=== PATIENT | female | born 1960 | race Caucasian/White ===

== ENCOUNTER 2016-09-13 18:35 | Emergency (ER) | payer OTHER ==
[2016-09-13 16:18] LABS: BASOPHILS 0.2 %; BASOPHILS ABSOLUTE 0.03 10/3/uL (0.0-0.16); EOSINOPHILS 0.8 %; EOSINOPHILS ABSOLUTE 0.13 10/3/uL (0.0-0.53); HEMATOCRIT 35.8 % (36.0-48.0); HEMOGLOBIN 11.6 g/dL (12.0-16.0); IMMATURE GRANULOCYTES 0.3 %; IMMATURE GRANULOCYTES ABSOLUTE 0.05 10/3/uL (0.0-0.11); LYMPHOCYTES 12.7 %; LYMPHOCYTES ABSOLUTE 1.97 10/3/uL (0.67-4.30); MEAN CORPUS HGB CONC 32.4 g/dL (32.0-36.0); MEAN CORPUSCULAR VOLUME 98.6 fL (80-100); MONOCYTES ABSOLUTE 0.47 10/3/uL (0.21-1.20); NEUTROPHILS ABSOLUTE 12.91 10/3/uL (2.02-8.40); PLATELET COUNT 311 10/3/uL (150-400); RBC DISTRIBUTION WIDTH 14.6 % (12.0-16.0); RED CELL COUNT 3.63 10/6/uL (4.0-5.6); WHITE BLOOD CELLS 15.6 10/3/uL (4.5-10.5)
[2016-09-13 16:20] LABS: MANUAL DIFF NO %
[2016-09-13 16:27] LABS: INTERNATIONAL NORMAL RATI 1.1 UNITS (-); PARTIAL THROMBO TIME 29.2 SEC (22.5-37.2); PROTIME (NOT ORD) 14.5 SEC (12.0-14.5)
[2016-09-13 16:32] LABS: CALCIUM, SERUM 8.9 MG/DL (8.5-10.4); CHEST PAIN PROFILE TAT 0 Hrs 18 Mins; CHLORIDE, SERUM 105 MMOL/L (96-112); CO2 (CARBON DIOXIDE) 30 MMOL/L (24-34); CREATININE 0.93 MG/DL (0.55-1.02); GFR AFRICAN AMERICAN 79 ML/MIN (>=60); GFR NON AFRICAN AMERICAN 68 ML/MIN (>=60); POTASSIUM, SERUM 4.2 MMOL/L (3.5-5.3); SODIUM, SERUM 139 MMOL/L (135-148); TROPONIN I <0.02 NG/ML (<0.05)
[2016-09-13 16:33] LABS: BUN (BLOOD UREA NITROGEN) 15 MG/DL (6-23); GLUCOSE, SERUM 144 MG/DL (60-99)
[~2016-09-13 18:35] MED LIST: ADVAIR100 INH; ADVAIR250 INH; AMB10 PO; ASAB PO; ATEN25 PO; CATAFLAM50 MG PO; CYMBALTA30 PO; FLONASE NAS; FORTAMET500 MG PO; GLUCPH PO; HALF81 PO; HCTZ25B PO; HYDROCHLOROT25 MG PO; KLOR-CON 1010 MEQ PO; LEVOTHYROXIN50 MCG PO; LEVOTHYROXIN75 MCG PO; LISINOPRIL40 MG PO; LORTAB10 PO; MEDROLPAK4 PO; MONODOX100 MG PO; NEUR600 PO; NORCO1 TAB PO; P10 PO; PROAIR HFA INH; PROVHFA INH; SINGULAIR1 PO; SPIRIVA INH; SYMBICORT 160/41 INH INH; SYN075 PO; TOPAMAX25 PO; VIMPAT200 MG PO; Z-PAK PO
== END 2016-09-13 19:38 | disposition home or self-care (01) ==
LOC: ER 18:35
PROVIDERS: Emergency Medicine
DX: J44.9 Chronic obstructive pulmonary disease, unspecified (principal); I11.0 Hypertensive heart disease with heart failure; I50.9 Heart failure, unspecified; E11.9 Type 2 diabetes mellitus without complications; F41.9 Anxiety disorder, unspecified; Z90.710 Acquired absence of both cervix and uterus; Z90.49 Acquired absence of other specified parts of digestive tract; Z88.5 Allergy status to narcotic agent; Z79.899 Other long term (current) drug therapy; Z79.82 Long term (current) use of aspirin; Z79.84 Long term (current) use of oral hypoglycemic drugs
CPT/HCPCS: 71020; 80048; 83735; 83880; 84484; 85025; 85610; 85730; 93005; 96374; 96375; 99285; A9270-GY; J1940; J2930